=== PATIENT | male | born 1960 | race Caucasian/White ===

== ENCOUNTER 2020-06-11 17:22 | Emergency (ER) | payer BC ==
[2020-06-11] MEDS ORDERED: Ibuprofen 600 MG Tab PO ONE (17:41)
--- NOTE | 2020-06-11 18:57 | CT ---
PROCEDURE INFORMATION: Exam: CT Head Without Contrast Exam date and time: 06/11/2020 6:34 PM Age: 60 years old Clinical indication: Other: Patients is having decrease in orientation since arriving at facility--not on blood thinners; Additional info: Pipe fell onto head; Confusion TECHNIQUE: Imaging protocol: Computed tomography of the head without contrast. Total images: 153 Radiation optimization: All CT scans at this facility use at least one of these dose optimization techniques: automated exposure control; mA and/or kV adjustment per patient size (includes targeted exams where dose is matched to clinical indication); or iterative reconstruction. COMPARISON: No relevant prior studies available. FINDINGS: Brain: Normal. No hemorrhage. Unremarkable white matter. No mass effect. Cerebral ventricles: No ventriculomegaly. Bones/joints: Unremarkable. No acute fracture. Paranasal sinuses: Focal mucosal thickening/polyp or retention cyst inferior left maxillary sinus Mastoid air cells: Visualized mastoid air cells are well aerated. Soft tissues: Unremarkable. IMPRESSION: No acute intracranial process.
[2020-06-11 19:14] LABS: ANION GAP 14.3 mEq/L (7-13); CHLORIDE,CL 99 mmol/L (98-107); SODIUM,NA 136 mmol/L (136-145)
--- NOTE | 2020-06-11 20:24 | EDM.PDOC ---
"ED HPI GENERAL MEDICAL PROBLEM - General Chief Complaint: Head Injury Stated Complaint: HEAD INJURY Time Seen by Provider: 06/11/20 20:15 Source of Information: Reports: Patient History Limitations: Reports: No Limitations - History of Present Illness INITIAL COMMENTS - FREE TEXT/NARRATIVE: This 60 yo male patient reports to the ED due to a head injury. 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 The patient does not know if he had a loss of consciousness after the incident. EMS did report to the scene, but the patient refused transport. The patient does have a laceration to his scalp. Onset: Today Onset Date: 06/11/20 Onset Time: 17:10 Duration: Constant Location: Reports: Head Quality: Reports: Ache Severity: Moderate Improves with: Reports: None Worsens with: Reports: None Context: Reports: Other Associated Symptoms: Reports: No Other Symptoms head Pain Score (Numeric/FACES): 5 - Related Data Allergies Allergy/AdvReac Type Severity Reaction Status Date / Time Anesthetics - Amide Type - Allergy Disorientat Verified 06/11/20 17:58 Select A ion Penicillins Allergy Nausea and Verified 06/11/20 17:58 Vomiting Home Meds: Home Meds Empagliflozin [Jardiance] 25 mg PO DAILY 06/11/20 [History] Fenofibrate Nanocrystallized [Fenofibrate] 145 mg PO DAILY 06/11/20 [History] Insulin Degludec [Tresiba] 72 unit SQ DAILY 06/11/20 [History] atorvaSTATin [Lipitor] 10 mg PO DAILY 06/11/20 [History] lisinopriL [Lisinopril] 10 mg PO DAILY 06/11/20 [History] metFORMIN HCl [Metformin HCl] 1,000 mg PO DAILY 06/11/20 [History] Past Medical History Cardiovascular History: Reports: High Cholesterol, Hypertension Respiratory History: Reports: None Gastrointestinal History: Reports: None Genitourinary History: Reports: None Musculoskeletal History: Reports: None Neurological History: Reports: Concussion Psychiatric History: Reports: None Endocrine/Metabolic History: Reports: Diabetes, Type II, Obesity/BMI 30+ Hematologic History: Reports: None Immunologic History: Reports: None Oncologic (Cancer) History: Reports: None Dermatologic History: Reports: None - Infectious Disease History Infectious Disease History: Reports: None - Past Surgical History Cardiovascular Surgical History: Reports: None Neurological Surgical History: Reports: None Musculoskeletal Surgical History: Reports: None Social & Family History - Family History Family Medical History: No Pertinent Family History - Tobacco Use Tobacco Use Status *Q: Never Tobacco User Second Hand Smoke Exposure: No - Caffeine Use Caffeine Use: Reports: None - Recreational Drug Use Recreational Drug Use: No ED ROS GENERAL - Review of Systems Review Of Systems: Comprehensive ROS is negative, except as noted in HPI. ED EXAM, HEAD INJURY - Physical Exam Exam: See Below Exam Limited By: No Limitations General Appearance: Alert, WD/WN, No Apparent Distress Head: Scalp Hematoma, Scalp Tenderness, Other (The patient does have a superficial laceration to his scalp, but there is no gaping when pressure to the margins. No suturing or robert needed. ) Nexus Criteria: No: Posterior, Midline Cervical Tenderness, Evidence of Intoxication, Altered Level of Consciousness, Focal Neurological Deficit, Painful Distraction Injuries Eyes: Bilateral Eye: EOMI, Normal Inspection, PERRL Ears: Normal External Exam, Normal Canal, Hearing Grossly Normal, Normal TMs Nose: Normal Inspection, Normal Mucousa, No Blood Throat/Mouth: Normal Inspection, Normal Lips, Normal Teeth, Normal Gums, Normal Oropharynx, Normal Voice, No Airway Compromise Neck: Non-Tender, Full Range of Motion, Normal Alignment, Normal Inspection Respiratory: No Respiratory Distress, Lungs Clear, Normal Breath Sounds, No Accessory Muscle Use, Chest Non-Tender Cardiovascular: Normal Peripheral Pulses, Regular Rate, Rhythm, No Edema, No Gallop, No JVD, No Murmur, No Rub GI/Abdominal Exam: Normal Bowel Sounds, Soft, Non-Tender, No Organomegaly, No Distention, No Abnormal Bruit, No Mass (Male) Exam: Deferred Rectal (Males) Exam: Deferred Back Exam: Full Range of Motion, Normal Inspection, NT Extremities: Normal Inspection, Normal Range of Motion, Non-Tender, No Pedal Edema, Normal Capillary Refill Neurologic: corn sheller II-XII nml As Tested, No Motor/Sensory Deficits, Alert, Normal Mood/Affect, Oriented x 3 Skin: Normal Color, Warm/Dry - [place] Coma Score Best Eye Response ([place]): (4) Open Spontaneously Best Verbal Response (Ofe): (5) Oriented Best Motor Response ([place]): (6) Obeys Commands Ofe Total: 15 Course - Vital Signs Last Recorded V/S: Last Vital Signs Temp 37.5 C 06/11/20 17:56 Pulse 91 06/11/20 17:56 Resp 20 06/11/20 17:56 BP 130/85 06/11/20 17:56 Pulse Ox 96 06/11/20 17:56 - Orders/Labs/Meds Orders: Active Orders 24 hr Category Date Time Status DRUG SCREEN URINE BIORAD [URCHEM] Urgent Lab 06/11/20 18:37 Ordered UA RFX KRUNAL AND CULT IF INDIC [URIN] Stat Lab 06/11/20 18:37 Ordered Labs: Laboratory Tests 06/11/20 06/11/20 Range/Units 18:48 18:48 WBC 9.4 (5.0-10.0) 10^3/uL RBC 5.10 (4.6-6.2) 10^6/uL Hgb 14.7 (14.0-18.0) g/dL Hct 42.7 (40.0-54.0) % MCV 83.7 (80-100) fL MCH 28.8 (27.0-34.0) pg MCHC 34.4 (33.0-35.0) g/dL Plt Count 240 (150-450) 10^3/uL Neut % (Auto) 69.6 (42.2-75.2) % Lymph % (Auto) 19.7 L (20.5-50.1) % Borden % (Auto) 8.4 H (2-8) % Eos % (Auto) 2.0 (1.0-3.0) % Baso % (Auto) 0.3 (0.0-1.0) % Sodium 136 (136-145) mmol/L Potassium 4.3 (3.5-5.1) mmol/L Chloride 99 (98-107) mmol/L Carbon Dioxide 27 (21-32) mmol/L Anion Gap 14.3 H (7-13) mEq/L BUN 18 (7-18) mg/dL Creatinine 1.00 (0.70-1.30) mg/dL Est Cr Clr Drug Dosing 87.30 mL/min Estimated GFR (MDRD) > 60 BUN/Creatinine Ratio 18.0 (No establ ref range) Glucose 133 H (70-99) mg/dL Calcium 8.8 (8.5-10.1) mg/dL Total Bilirubin 0.3 (0.2-1.0) mg/dL AST 13 L (15-37) U/L ALT 27 (16-63) U/L Alkaline Phosphatase 45 L (46-116) U/L Total Protein 6.9 (6.4-8.2) g/dL Albumin 3.8 (3.4-5.0) g/dL Globulin 3.1 Albumin/Globulin Ratio 1.2 Ethyl Alcohol < 3 (0) mg/dL Meds: Medications Discontinued Medications Generic Name Dose Route Start Last Admin Trade Name Freq PRN Reason Stop Dose Admin Ibuprofen 600 mg 06/11/20 17:41 06/11/20 17:53 Ibuprofen 600 Mg Tab PO 06/11/20 17:42 600 mg ONETIME ONE Administration - Radiology Interpretation Free Text/Narrative:: [facility] Final Radiology Report Call: [phone] assistance Online chat: [email or web address] Name: ALISON ARRIAGA Age: 60Years M Date: 06/11/2020 SSN: -- : [id number] Study: CT HEAD WO CONT Requesting Physician: Lakesha Virgen Images: 153 Addl Studies: Provided Clinical History: Pipe fell onto head; Confusion Contrast: Without Contrast Medium: Contrast Amount: Contrast Method: Page 1 of 2 PROCEDURE INFORMATION: Exam: CT Head Without Contrast Exam date and time: 06/11/2020 6:34 PM Age: 60 years old Clinical indication: Other: Patients is having decrease in orientation since arriving at facility--not on blood thinners; Additional info: Pipe fell onto head; Confusion TECHNIQUE: Imaging protocol: Computed tomography of the head without contrast. Total images: 153 Radiation optimization: All CT scans at this facility use at least one of these dose optimization techniques: automated exposure control; mA and/or kV adjustment per patient size (includes targeted exams where dose is matched to clinical indication); or iterative reconstruction. COMPARISON: No relevant prior studies available. FINDINGS: Brain: Normal. No hemorrhage. Unremarkable white matter. No mass effect. Cerebral ventricles: No ventriculomegaly. Bones/joints: Unremarkable. No acute fracture. Paranasal sinuses: Focal mucosal thickening/polyp or retention cyst inferior left maxillary sinus Mastoid air cells: Visualized mastoid air cells are well aerated. Soft tissues: Unremarkable. IMPRESSION: No acute intracranial process. Thank you for allowing us to participate in the care of your patient. ALISON ARRIAGA | Final Radiology Report CONFIDENTIALITY STATEMENT This report is intended only for use by the referring physician, and only in accordance with law. If you received this in error, call [phone]. Page 2 of 2 Dictated and Authenticated by: Chris Oleary MD 06/11/2020 6:57 PM Central Time ([place] & [place]) Departure - Departure Time of Disposition: 20:32 Disposition: Home, Self-Care 01 Condition: Fair Clinical Impression: Concussion injury of brain - Discharge Information *PRESCRIPTION DRUG MONITORING PROGRAM REVIEWED*: Not Applicable *COPY OF PRESCRIPTION DRUG MONITORING REPORT IN PATIENT RUSSELL: Not Applicable Instructions: Concussion, Adult, Imco-ei-Camb Forms: ED Department Discharge Care Plan Goals: The patient was advised of the examination, lab and CT results during the visit. The patient was encouraged to rest and relax over the next 24 hours. If the patient has any additional symptoms or concerns, the patient should either return to the emergency department or visit his primary care facility. Sepsis Event Note (ED) - Evaluation Sepsis Screening Result: No Definite Risk - Focused Exam Vital Signs: Vital Signs Temp Pulse Resp BP Pulse Ox 06/11/20 17:56 37.5 C 91 20 130/85 96"
== END 2020-06-11 20:39 | disposition home or self-care (01) ==
LOC: DL.ED 17:22
DX: S06.0X0A Concussion without loss of consciousness, initial encounter (principal); E11.9 Type 2 diabetes mellitus without complications; E66.9 Obesity, unspecified; E78.00 Pure hypercholesterolemia, unspecified; I10 Essential (primary) hypertension; Z79.4 Long term (current) use of insulin; Z79.899 Other long term (current) drug therapy; Z88.4 Allergy status to anesthetic agent; Z88.0 Allergy status to penicillin; Z68.30 Body mass index [BMI] 30.0-30.9, adult; W20.8XXA Other cause of strike by thrown, projected or falling object, initial encounter; Y99.0 Civilian activity done for income or pay
CPT/HCPCS: 36415; 70450; 80053; 80307; 85025; 99284; A9270

== ENCOUNTER 2023-11-29 10:03 | Day surgery (SDC) | payer BC ==
[2023-11-29] MEDS ORDERED: Acetaminophen/Codeine 300-30 MG Tab PO PRN (10:15)
[2023-11-29] MEDS ORDERED: Acetaminophen 325 MG Tab PO PRN (10:15)
[2023-11-29] MEDS ORDERED: Ondansetron 4 MG/2 ML SDV IVPUSH PRN (10:15)
[2023-11-29] MEDS: Sodium Chloride 0.9% 10 ML Syringe FLUSH PRN (10:30)
[2023-11-29] MEDS: Proparacaine 0.5% Ophth Soln 15 ML Bottle EYERT ONE ×2 (10:56→11:22)
[2023-11-29] MEDS: Moxifloxacin 0.5% Ophth Soln 3 ML Bottle EYERT ONE (10:59)
[2023-11-29] MEDS: Povidone-Iodine 5% Sterile Ophth Soln 30 ML Bottle EYERT ONE ×2 (11:00→11:22)
[2023-11-29] MEDS: Tropicamide 1% Ophth Soln 15 ML Bottle EYERT ONE (11:01)
[2023-11-29] MEDS: Phenylephrine 10% Ophth Soln 5 ML Bot EYERT ONE (11:02)
[2023-11-29] MEDS: Timolol Maleate 0.5% Ophth Soln 5 ML Bottle EYERT ONE (11:02)
[2023-11-29] MEDS: Cataract Ophth Solution EYERT ONE (11:04)
[2023-11-29] MEDS: Diclofenac Sodium 0.1% Ophth Soln 5 ML Bottle EYERT ONE (11:22)
[2023-11-29] MEDS: Apraclonidine 0.5% Ophth Soln 5 ML Bot EYERT ONE (11:22)
[2023-11-29] MEDS: Lidocaine 1% 30 ML SDV ONE (11:29)
[2023-11-29] MEDS: Dexamethasone/Neomycin/Polymyxin B Ophth Oint 3.5 GM Tube EYERT ONE (11:32)
[2023-11-29] MEDS: Vancomycin 500 MG SDV EYERT ONE (11:33)
[2023-11-29] MEDS: Dexamethasone 4 MG/ML SDV ONE (11:37)
== END 2023-11-29 12:45 | disposition home or self-care (01) ==
LOC: DL.SDS 10:03
PROVIDERS: ATTEND Ophthalmology
DX: E11.36 Type 2 diabetes mellitus with diabetic cataract (principal); H25.811 Combined forms of age-related cataract, right eye; I10 Essential (primary) hypertension; E78.2 Mixed hyperlipidemia; Z79.899 Other long term (current) drug therapy; Z79.84 Long term (current) use of oral hypoglycemic drugs; Z79.4 Long term (current) use of insulin; Z88.0 Allergy status to penicillin
CPT/HCPCS: A9270-GY; J1100; J3370; J3490; V2788-GY

== ENCOUNTER 2023-12-13 10:01 | Day surgery (SDC) | payer BC ==
[2023-12-13] MEDS ORDERED: Acetaminophen/Codeine 300-30 MG Tab PO PRN (10:15)
[2023-12-13] MEDS ORDERED: Acetaminophen 325 MG Tab PO PRN (10:15)
[2023-12-13] MEDS ORDERED: Ondansetron 4 MG/2 ML SDV IVPUSH PRN (10:15)
[2023-12-13] MEDS: Sodium Chloride 0.9% 10 ML Syringe FLUSH PRN (10:20)
[2023-12-13] MEDS: Proparacaine 0.5% Ophth Soln 15 ML Bottle EYELF ONE ×2 (10:27→10:53)
[2023-12-13] MEDS: Povidone-Iodine 5% Sterile Ophth Soln 30 ML Bottle EYELF ONE ×2 (10:29→10:54)
[2023-12-13] MEDS: Moxifloxacin 0.5% Ophth Soln 3 ML Bottle EYELF ONE (10:29)
[2023-12-13] MEDS: Tropicamide 1% Ophth Soln 15 ML Bottle EYELF ONE (10:30)
[2023-12-13] MEDS: Timolol Maleate 0.5% Ophth Soln 5 ML Bottle EYELF ONE (10:31)
[2023-12-13] MEDS: Phenylephrine 10% Ophth Soln 5 ML Bot EYELF ONE (10:31)
[2023-12-13] MEDS: Cataract Ophth Solution EYELF ONE (10:34)
[2023-12-13] MEDS: Vancomycin 500 MG SDV EYELF ONE (11:01)
[2023-12-13] MEDS: Lidocaine 1% 30 ML SDV ONE (11:01)
[2023-12-13] MEDS: Apraclonidine 0.5% Ophth Soln 5 ML Bot EYELF ONE (11:02)
[2023-12-13] MEDS: Diclofenac Sodium 0.1% Ophth Soln 5 ML Bottle EYELF ONE (11:02)
[2023-12-13] MEDS: Dexamethasone/Neomycin/Polymyxin B Ophth Oint 3.5 GM Tube EYELF ONE (11:02)
== END 2023-12-13 12:25 | disposition home or self-care (01) ==
LOC: DL.SDS 10:01
PROVIDERS: ATTEND Ophthalmology
DX: E11.36 Type 2 diabetes mellitus with diabetic cataract (principal); H25.812 Combined forms of age-related cataract, left eye; I10 Essential (primary) hypertension; E78.2 Mixed hyperlipidemia; Z79.899 Other long term (current) drug therapy; Z79.84 Long term (current) use of oral hypoglycemic drugs; Z79.4 Long term (current) use of insulin; Z88.0 Allergy status to penicillin; Z91.040 Latex allergy status
CPT/HCPCS: 66984; A9270; J3370; J3490

== ENCOUNTER 2024-05-07 14:11 | Emergency (ER) | payer BC ==
[2024-05-07] MEDS: Lidocaine 1% with EPINEPHrine 1:100,000 20 ML MDV INJECT ONE (14:55)
== END 2024-05-07 15:10 | disposition home or self-care (01) ==
LOC: DL.ED 14:11
DX: S01.01XA Laceration without foreign body of scalp, initial encounter (principal); I10 Essential (primary) hypertension; E78.00 Pure hypercholesterolemia, unspecified; E11.9 Type 2 diabetes mellitus without complications; Z88.0 Allergy status to penicillin; Z91.018 Allergy to other foods; Z79.899 Other long term (current) drug therapy; Z79.4 Long term (current) use of insulin; Z79.82 Long term (current) use of aspirin; Z79.84 Long term (current) use of oral hypoglycemic drugs; Z79.85 Long-term (current) use of injectable non-insulin antidiabetic drugs; W22.8XXA Striking against or struck by other objects, initial encounter; Y93.89 Activity, other specified
CPT/HCPCS: 12001; 99282; 99283